=== PATIENT | female | born 1965 | race Caucasian/White ===

== ENCOUNTER 2017-10-05 10:44 | Inpatient (IN) | payer BC ==
[2017-10-05 11:43] VITALS: BMI 34.0
--- NOTE | 2017-10-05 13:18 | HP ---
COWS - Scale Resting Pulse: 1= AL 81-100 Sweatin=Flushed/Facial Moisture Restless Observation: 3= Extraneous Movement Pupil Size: 2= Moderately Dilated Bone or Joint Aches: 2= Severe Diffuse Aches Runny Nose/ Eye Tearin= Runny Nose/Eyes GI Upset > 30mins: 3= Vomiting/Diarrhea Tremor Observation: 2= Slight Tremor Visible Yawning Observation: 2= >3x During Session Anxiety or Irritability: 2=Irritable/Anxious Goose Flesh Skin: 0=Smooth Skin COWS Score: 21 Admission ROS S - HPI Chief Complaint: i need help to stop using heroin and marijuana Allergies/Adverse Reactions: Allergies Allergy/AdvReac Type Severity Reaction Status Date / Time No Known Allergies Allergy Verified 10/05/17 11:50 History of Present Illness: this 51 years old female with heroin and marijuana dependence,seeking detox, withdrawal symptom,last treatment 04/13/16 to 04/15/16 not completed asthma infected both axilla and right groin abscess on bactrim ds 1 tab bid [facility] anxiety,depression,insomnia longest period of sobriety 4 years Exam Limitations: No Limitations - Ebola screening Have you traveled outside of the country in the last 21 days: No Have you had contact with anyone from an Ebola affected area: No Have you been sick,other than usual withdrawal symptoms: No Do you have a fever: No - Review of Systems Constitutional: Chills, Loss of Appetite, Malaise, Night Sweats, Changes in sleep, Weakness EENT: reports: Tearing, Nose Congestion Respiratory: reports: No Symptoms reported Cardiac: reports: No Symptoms Reported GI: reports: Diarrhea, Nausea, Vomiting, Abdominal cramping : reports: No Symptoms Reported Musculoskeletal: reports: Back Pain, Joint Pain, Muscle Pain, Joint Stiffness Integumentary: reports: Dryness Neuro: reports: Headache, Tremors Endocrine: reports: No Symptoms Reported Hematology: reports: No Symptoms Reported Psychiatric: reports: No Sypmtoms Reported, Judgement Intact, Mood/Affect Appropiate, Orientated x3 (insomnia), Anxious, Depressed Patient History - Patient Medical History Hx Anemia: No Hx Asthma: Yes (on albuterol inhaler) Hx Chronic Obstructive Pulmonary Disease (COPD): No Hx Cancer: No Hx Cardiac Disorders: No Hx Congestive Heart Failure: No Hx Hypertension: No Hx Hypercholesterolemia: No Hx Pacemaker: No HX Cerebrovascular Accident: No Hx Seizures: No Hx Dementia: No Hx Diabetes: No Hx Gastrointestinal Disorders: No Hx Liver Disease: No Hx Genitourinary Disorders: No Hx Sexually Transmitted Disorders: No Hx Renal Disease (ESRD): No Hx Thyroid Disease: No Hx Human Immunodeficiency Virus (HIV): No (NEGATIVE HX last 07/29 ) Hx Hepatitis C: No Hx Depression: Yes Hx Suicide Attempt: Yes (walked infront of a car) Hx Bipolar Disorder: Yes Hx Schizophrenia: No Other Medical History: no suicidal,no homicidal - Patient Surgical History Past Surgical History: No Hx Neurologic Surgery: No Hx Cataract Extraction: No Hx Cardiac Surgery: No Hx Lung Surgery: No Hx Breast Surgery: No Hx Breast Biopsy: No Hx Abdominal Surgery: No Hx Appendectomy: No Hx Cholecystectomy: No Hx Genitourinary Surgery: No Hx Section: No Hx Orthopedic Surgery: No Hx Hysterectomy: No Anesthesia Reaction: No - PPD History Previous Implant?: Yes Documented Results: Positive w/o proof Implanted On Prior R Admission?: No Results: CXR TO BE DONE - Reproductive History Patient is a Female of Child Bearing Age (11 -55 yrs old): Yes Last Menstrual Period: 03/25/16 Patient : No - Smoking Cessation Smoking history: Current every day smoker Have you smoked in the past 12 months: Yes Aproximately how many cigarettes per day: 7 Hx Chewing Tobacco Use: No Initiated information on smoking cessation: Yes 'Breaking Loose' booklet given: 10/05/17 - Substance & Tx. History Hx Alcohol Use: No Hx Substance Use: Yes Substance Use Type: Heroin, Marijuana Hx Substance Use Treatment: Yes ([facility] 04/13/16 to 04/15/16 not completed) - Substances Abused Heroin Route: Inhalation Frequency: Daily Amount used: 6 bags Age of first use: 30 Date of Last Use: 10/05/17 Marijuana/Hashish Route: Smoking Frequency: Daily Amount used: $10 Age of first use: 17 Date of Last Use: 10/04/17 Family Disease History - Family Disease History Family Disease History: Other: Father (alcohol,), Mother (dsa,alcohol ) Admission Physical Exam BHS - Vital Signs Vital Signs: Vital Signs - 24 hr 10/05/17 11:37 Temperature 96.1 F L Pulse Rate 89 Respiratory 20 Rate Blood Pressure 133/93 - Physical General Appearance: Yes: Moderate Distress, Tremorous, Irritable, Sweating, Anxious HEENTM: Yes: Normal ENT Inspection, SILVERIO, Pharynx Normal Respiratory: Yes: Lungs Clear, Normal Breath Sounds, No Respiratory Distress Neck: Yes: Within Normal Limits, Supple, Trachea in good position Breast: Yes: Breast Exam Deferred Cardiology: Yes: Within Normal Limits, Regular Rhythm, S1, S2 Abdominal: Yes: Normal Bowel Sounds, Non Tender, Soft, Organomegaly Genitourinary: Yes: Within Normal Limits Back: Yes: Normal Inspection, Muscle Spasm Musculoskeletal: Yes: full range of Motion, Back pain, Muscle Pain Extremities: Yes: Within Normal Limits, Normal Range of Motion, Tremors Neurological: Yes: marketing intelligence manager II-XII NML intact, Alert, Motor Strength 5/5 Integumentary: Yes: Dry, Other (abscess both axilla and right groin) Lymphatic: Yes: Within Normal Limits - Diagnostic (1) Opioid dependence with withdrawal Current Visit: Yes Status: Acute (2) Cannabis dependence Current Visit: Yes Status: Acute (3) Asthma Current Visit: Yes Status: Acute (4) Nicotine dependence Current Visit: Yes Status: Acute (5) Abscess Current Visit: Yes Status: Acute (6) Bipolar disorder Current Visit: Yes Status: Suspected Qualifiers: Current episode severity: unspecified Comment: Self reports. Cleared for Admission [facility] - Detox or Rehab [facility] Level of Care: Medically Managed Detox Regimen/Protocol: Methadone [facility] Breath Alcohol Content Breath Alcohol Content: 0 Urine Pregancy Test - Result Urine Test Results: Negative- NO Line Present Urine Drug Screen - Results Drug Screen Negative: No Urine Drug Screen Results: THC-Marijuana, OPI-Opiates, MTD-Methadone
[2017-10-05] MEDS ORDERED: MAG HYDROX/AL HYDROX/SIMETH 30 ML UNIT-DOSE CUP PO PRN (13:33)
[2017-10-05] MEDS ORDERED: MENTHOL/PHENOL 1 EACH UD MM PRN (13:33)
[2017-10-05] MEDS ORDERED: LOPERAMIDE HCL 2 MG CAPSULE PO PRN (13:33)
[2017-10-05] MEDS ORDERED: P-EPHED 60MG/TRIPROLIDI 2.5MG TABLET PO PRN (13:33)
[2017-10-05] MEDS ORDERED: hydrOXYzine PAMOATE 50 MG CAPSULE (FP) PO PRN (13:33)
[2017-10-05] MEDS ORDERED: NICOTINE POLACRILEX 2 MG GUM BUC PRN (13:33)
[2017-10-05] MEDS ORDERED: MAGNESIUM CITRATE 300 ML BOTTLE PO PRN (13:33)
[2017-10-05] MEDS ORDERED: ACETAMINOPHEN 325 MG TABLET (FP) PO PRN (13:33)
[2017-10-05] MEDS ORDERED: MAGNESIUM HYDROX 2400MG/30ML ORAL SUSPENSION 30 ML CUP PO PRN (13:33)
[2017-10-05] MEDS ORDERED: guaiFENesin/D-METHORPHAN HB 10 ML UNIT-DOSE CUPS PO PRN (13:33)
[2017-10-05] MEDS ORDERED: IBUPROFEN 400 MG TABLET (FP) PO PRN (13:33)
[2017-10-05] MEDS ORDERED: ALBUTEROL SO4 18 GM HFA INHALER IH PRN (13:37)
[2017-10-05] MEDS ORDERED: METHADONE HCL 10 MG TABLET (FOR DETOX USE ONLY) PO ONE ×2 (14:40→23:00)
[2017-10-05] MEDS: diazePAM 5 MG TABLET PO PRN (15:26)
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
[2017-10-05 21:31] LABS: URINE APPEARANCE CLOUDY; URINE BILIRUBIN NEGATIVE (<2.0 mg/dL); URINE BLOOD NEGATIVE (NEGATIVE); URINE COLOR YELLOW; URINE GLUCOSE (UA) NEGATIVE (NEGATIVE); URINE KETONE NEGATIVE (NEGATIVE); URINE LEUK ESTERASE TRACE (NEGATIVE); URINE NITRITE NEGATIVE (NEGATIVE); URINE PROTEIN NEGATIVE (NEGATIVE)
[2017-10-05 21:47] LABS: CALCIUM OXALATE CRYSTALS RARE /hpf (NONE SEEN); EPI CELLS MODERATE /HPF (FEW); URINE MUCUS RARE
[2017-10-05] MEDS ORDERED: MELATONIN 5 MG TABLETS PO PRN (22:00)
[2017-10-05] MEDS: THIAMINE HCL 100 MG TABLET (FP) PO SCH (22:33)
[2017-10-06] MEDS ORDERED: SULFAMETHOXAZOLE/TRIMETHOPRIM 800MG/160MG D.S. TABLET PO SCH (10:00)
[2017-10-06] MEDS ORDERED: METHADONE HCL 10 MG TABLET (FOR DETOX USE ONLY) PO ONE (10:00)
[2017-10-06] MEDS: PRENATAL VITAMINS W/ FOLIC ACID TABLET (FP) PO SCH (10:22)
[2017-10-06] MEDS: diazePAM 5 MG TABLET PO PRN ×2 (10:23→22:27)
[2017-10-06 10:27] LABS: CHLORIDE 107 mmol/L (98-107); POTASSIUM 3.7 mmol/L (3.5-5.1); SODIUM 144 mmol/L (136-145)
[2017-10-06 10:28] LABS: HEMOGLOBIN 13.4 GM/dL (10.7-15.3); MCH 31.8 pg (25.7-33.7); MCHC 34.4 g/dl (32.0-36.0); MEAN CELL VOLUME 92.5 fl (80-96); MEAN PLT VOLUME 9.6 fl (7.5-11.1); PLATELET COUNT 159 K/MM3 (134-434); RBC 4.22 M/mm3 (3.60-5.2); RDW 14.1 % (11.6-15.6); WHITE BLOOD COUNT 7.3 K/mm3 (4.0-10.0)
[2017-10-06 10:34] LABS: ALBUMIN 3.6 g/dl (3.4-5.0); ALK PHOS 66 U/L (45-117); ANION GAP 6 (8-16); BILIRUBIN,TOTAL 0.3 mg/dL (0.2-1.0); BLOOD UREA NITROGEN 10 mg/dL (7-18); CALCIUM 8.4 mg/dL (8.5-10.1); CO2 31 mmol/L (21-32); CREATININE 0.8 mg/dL (0.55-1.02); GLUCOSE,RANDOM 109 mg/dL (74-106); SGOT/AST 12 U/L (15-37); SGPT/ALT 12 U/L (12-78); TOT PROT 6.8 g/dl (6.4-8.2)
[2017-10-06] MEDS: SULFAMETHOXAZOLE/TRIMETHOPRIM 800MG/160MG D.S. TABLET PO SCH ×2 (11:05→22:27)
[2017-10-06] MEDS ORDERED: ONDANSETRON *ODT* 4 MG TABLET SL PRN (11:33)
--- NOTE | 2017-10-06 11:37 | EKG ---
Test Reason : Blood Pressure : / mmHG Vent. Rate : 067 BPM Atrial Rate : 067 BPM P-R Int : 130 ms QRS Dur : 076 ms QT Int : 388 ms P-R-T Axes : 066 048 017 degrees QTc Int : 409 ms NORMAL SINUS RHYTHM LOW VOLTAGE QRS NONSPECIFIC T WAVE ABNORMALITY ABNORMAL ECG NO PREVIOUS ECGS AVAILABLE Confirmed by HARLAN MALIN, BENTLEY ([id number]) on 10/06/2017 11:37:10 AM Referred By: Confirmed By:BENTLEY CLAROS MD
--- NOTE | 2017-10-06 14:23 | PN ---
BHS COWS - Scale Resting Pulse: 0= NE 80 or Below Sweatin= Chills/Flushing Restless Observation: 3= Extraneous Movement Pupil Size: 1= Pupils >than Normal Bone or Joint Aches: 2= Severe Diffuse Aches Runny Nose/ Eye Tearin= Runny Nose/Eyes GI Upset > 30mins: 2= Nausea/Diarrhea Tremor Observation of Outstretched Hands: 2= Slight Tremor Visible Yawning Observation: 2= >3x During Session Anxiety or Irritability: 2=Irritable/Anxious Goose Flesh Skin: 0=Smooth Skin COWS Score: 17 S Progress Note (SOAP) Subjective: ALERT,IRRITABLE,ANXIOUS,INTERRUPTED SLEEP,TREMOR,PAIN IN THE BODY AND BACK Objective: 10/06/17 14:21 Vital Signs Temperature 97.9 F 10/06/17 10:00 Pulse Rate 70 10/06/17 10:00 Respiratory Rate 18 10/06/17 10:00 Blood Pressure 109/77 10/06/17 10:00 O2 Sat by Pulse Oximetry (%) EKG NSR,LOW VOLTAGE,PROLONG QT 404/423 NO CHEST PAIN,NO SOB,NO DIZZINESS Laboratory Last Values WBC 7.3 K/mm3 (4.0-10.0) 10/06/17 07:40 RBC 4.22 M/mm3 (3.60-5.2) 10/06/17 07:40 Hgb 13.4 GM/dL (10.7-15.3) 10/06/17 07:40 Hct 39.0 % (32.4-45.2) 10/06/17 07:40 MCV 92.5 fl (80-96) 10/06/17 07:40 MCH 31.8 pg (25.7-33.7) 10/06/17 07:40 MCHC 34.4 g/dl (32.0-36.0) 10/06/17 07:40 RDW 14.1 % (11.6-15.6) 10/06/17 07:40 Plt Count 159 K/MM3 (134-434) 10/06/17 07:40 MPV 9.6 fl (7.5-11.1) 10/06/17 07:40 Sodium 144 mmol/L (136-145) 10/06/17 07:40 Potassium 3.7 mmol/L (3.5-5.1) 10/06/17 07:40 Chloride 107 mmol/L (98-107) 10/06/17 07:40 Carbon Dioxide 31 mmol/L (21-32) 10/06/17 07:40 Anion Gap 6 (8-16) L 10/06/17 07:40 BUN 10 mg/dL (7-18) 10/06/17 07:40 Creatinine 0.8 mg/dL (0.55-1.02) 10/06/17 07:40 Creat Clearance w eGFR > 60 (>60) 10/06/17 07:40 Random Glucose 109 mg/dL (74-106) H 10/06/17 07:40 Calcium 8.4 mg/dL (8.5-10.1) L 10/06/17 07:40 Total Bilirubin 0.3 mg/dL (0.2-1.0) D 10/06/17 07:40 AST 12 U/L (15-37) L 10/06/17 07:40 ALT 12 U/L (12-78) 10/06/17 07:40 Alkaline Phosphatase 66 U/L (45-117) 10/06/17 07:40 Total Protein 6.8 g/dl (6.4-8.2) 10/06/17 07:40 Albumin 3.6 g/dl (3.4-5.0) 10/06/17 07:40 Urine Color Yellow 10/05/17 14:00 Urine Appearance Cloudy 10/05/17 14:00 Urine pH 6.0 (5.0-8.0) 10/05/17 14:00 Ur Specific [place] 1.019 (1.001-1.035) 10/05/17 14:00 Urine Protein Negative (NEGATIVE) 10/05/17 14:00 Urine Glucose (UA) Negative (NEGATIVE) 10/05/17 14:00 Urine Ketones Negative (NEGATIVE) 10/05/17 14:00 Urine Blood Negative (NEGATIVE) 10/05/17 14:00 Urine Nitrite Negative (NEGATIVE) 10/05/17 14:00 Urine Bilirubin Negative (<2.0 mg/dL) 10/05/17 14:00 Urine Urobilinogen 2.0 mg/dL (0.2-1.0) H 10/05/17 14:00 Ur Leukocyte Esterase Trace (NEGATIVE) 10/05/17 14:00 Urine WBC (Auto) 4 /hpf (3-5) 10/05/17 14:00 Urine RBC (Auto) 2 /hpf (0-3) 10/05/17 14:00 Ur Epithelial Cells Moderate /HPF (FEW) 10/05/17 14:00 Calcium Oxalate Crystal Rare /hpf (NONE SEEN) 10/05/17 14:00 Urine Mucus Rare 10/05/17 14:00 RPR Titer Nonreactive (NONREACTIVE) 10/06/17 07:40 Assessment: 10/06/17 14:23 WITHDRAWAL SYMPTOM Plan: CONTINUE DETOX
[2017-10-06] MEDS: THIAMINE HCL 100 MG TABLET (FP) PO SCH (22:26)
[2017-10-07] MEDS ORDERED: METHADONE HCL 5 MG TABLET (FOR DETOX USE ONLY) PO ONE (10:00)
[2017-10-07] MEDS: PRENATAL VITAMINS W/ FOLIC ACID TABLET (FP) PO SCH (10:16)
[2017-10-07] MEDS: SULFAMETHOXAZOLE/TRIMETHOPRIM 800MG/160MG D.S. TABLET PO SCH (10:16)
[2017-10-07] MEDS: diazePAM 5 MG TABLET PO PRN (10:17)
--- NOTE | 2017-10-07 10:47 | EKG ---
Test Reason : Blood Pressure : / mmHG Vent. Rate : 066 BPM Atrial Rate : 066 BPM P-R Int : 136 ms QRS Dur : 078 ms QT Int : 404 ms P-R-T Axes : 062 029 008 degrees QTc Int : 423 ms NORMAL SINUS RHYTHM POSSIBLE LEFT ATRIAL ENLARGEMENT LOW VOLTAGE QRS NONSPECIFIC T WAVE ABNORMALITY ABNORMAL ECG WHEN COMPARED WITH ECG OF 05-OCT-2017 16:07, NO SIGNIFICANT CHANGE WAS FOUND Confirmed by HARLAN MALIN, BENTLEY ([id number]) on 10/07/2017 10:47:49 AM Referred By: Confirmed By:BENTLEY CLAROS MD
--- NOTE | 2017-10-07 11:39 | PN ---
BHS COWS - Scale Resting Pulse: 0= SD 80 or Below Sweatin= Chills/Flushing Restless Observation: 1= Difficult to Sit Still Pupil Size: 0= Normal to Room Light Bone or Joint Aches: 2= Severe Diffuse Aches Runny Nose/ Eye Tearin= Nasal Congestion GI Upset > 30mins: 1= Stomach Cramp Tremor Observation of Outstretched Hands: 2= Slight Tremor Visible Yawning Observation: 1= 1-2x During Session Anxiety or Irritability: 2=Irritable/Anxious Goose Flesh Skin: 3=Piloerection COWS Score: 14 S Progress Note (SOAP) Subjective: sweats body aches i want gingerale for my upset stomach i want to see a resaw operator interrupted sleep Objective: 10/07/17 11:37 Vital Signs Temperature 97.5 F L 10/07/17 11:00 Pulse Rate 69 10/07/17 11:00 Respiratory Rate 20 10/07/17 11:00 Blood Pressure 140/80 10/07/17 11:00 O2 Sat by Pulse Oximetry (%) Laboratory Tests 10/05/17 10/06/17 10/06/17 14:00 07:40 07:40 WBC 7.3 RBC 4.22 Hgb 13.4 Hct 39.0 MCV 92.5 MCH 31.8 MCHC 34.4 RDW 14.1 Plt Count 159 MPV 9.6 Sodium 144 Potassium 3.7 Chloride 107 Carbon Dioxide 31 Anion Gap 6 L BUN 10 Creatinine 0.8 Creat Clearance w eGFR > 60 Random Glucose 109 H Calcium 8.4 L Total Bilirubin 0.3 D AST 12 L ALT 12 Alkaline Phosphatase 66 Total Protein 6.8 Albumin 3.6 Urine Color Yellow Urine Appearance Cloudy Urine pH 6.0 Ur Specific [place] 1.019 Urine Protein Negative Urine Glucose (UA) Negative Urine Ketones Negative Urine Blood Negative Urine Nitrite Negative Urine Bilirubin Negative Urine Urobilinogen 2.0 H Ur Leukocyte Esterase Trace Urine WBC (Auto) 4 Urine RBC (Auto) 2 Ur Epithelial Cells Moderate Calcium Oxalate Crystal Rare Urine Mucus Rare RPR Titer 10/06/17 07:40 WBC RBC Hgb Hct MCV MCH MCHC RDW Plt Count MPV Sodium Potassium Chloride Carbon Dioxide Anion Gap BUN Creatinine Creat Clearance w eGFR Random Glucose Calcium Total Bilirubin AST ALT Alkaline Phosphatase Total Protein Albumin Urine Color Urine Appearance Urine pH Ur Specific [place] Urine Protein Urine Glucose (UA) Urine Ketones Urine Blood Urine Nitrite Urine Bilirubin Urine Urobilinogen Ur Leukocyte Esterase Urine WBC (Auto) Urine RBC (Auto) Ur Epithelial Cells Calcium Oxalate Crystal Urine Mucus RPR Titer Nonreactive aaox3 ambulating no acute distress Assessment: 10/07/17 11:38 withdrawal sx Plan: continue detox increase fluids gingerale with meals resaw operator ordered
[2017-10-07 13:35] VITALS: BP 114/75; PULSE 61; TEMP 97.7
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
--- NOTE | 2017-10-07 16:02 | DS ---
[facility] Detox Discharge Summary Admission Date: 10/05/17 - History Present History: Alcohol Dependence, Cannabis Dependence - Physical Exam Results Vital Signs: Vital Signs Temperature 97.7 F 10/07/17 13:35 Pulse Rate 61 10/07/17 13:35 Respiratory Rate 18 10/07/17 13:35 Blood Pressure 114/75 10/07/17 13:35 O2 Sat by Pulse Oximetry (%) - Treatment Hospital Course: Discharged Condition Good - Medication Discharge Medications: Ambulatory Orders Albuterol Sulfate Inhaler - [Ventolin Hfa Inhaler -] 2 inh PO Q4H PRN 04/13/16 Aripiprazole [Abilify -] 5 mg PO DAILY 04/13/16 Sulfamethoxazole/Trimethoprim [Bactrim Ds -] 1 tab PO DAILY 10/05/17 - Diagnosis (1) Abscess Current Visit: Yes Status: Acute (2) Asthma Current Visit: Yes Status: Chronic Qualifiers: Asthma severity: mild Asthma complication type: uncomplicated (3) Cannabis dependence Current Visit: Yes Status: Chronic (4) Nicotine dependence Current Visit: Yes Status: Chronic Qualifiers: Nicotine product type: cigarettes Substance use status: uncomplicated Qualified Code(s): F17.210 - Nicotine dependence, cigarettes, uncomplicated (5) Opioid dependence with withdrawal Current Visit: Yes Status: Chronic (6) Substance induced mood disorder Current Visit: Yes Status: Acute (7) Bipolar disorder Current Visit: Yes Status: Suspected Qualifiers: Current episode severity: unspecified (8) Drug-induced mood disorder Current Visit: No Status: Acute (9) Alcohol dependence with uncomplicated withdrawal Current Visit: No Status: Chronic (10) Chronic constipation Current Visit: No Status: Chronic (11) History of asthma Current Visit: No Status: Chronic (12) Marijuana abuse Current Visit: No Status: Chronic - AMA Did Patient Leave Against Medical Advice: Yes (going home)
[2017-10-08] MEDS ORDERED: METHADONE HCL 5 MG TABLET (FOR DETOX USE ONLY) PO ONE (10:00)
[2017-10-09] MEDS ORDERED: METHADONE HCL 10 MG TABLET (FOR DETOX USE ONLY) PO ONE (10:00)
[2017-10-10] MEDS ORDERED: METHADONE HCL 5 MG TABLET (FOR DETOX USE ONLY) PO ONE (06:00)
== END 2017-10-07 15:44 | disposition left against medical advice (07) | DRG 894 ==
LOC: YASAS 10:44 → Y6N 14:13
PROVIDERS: ADMIT Internal Medicine; ATTEND Internal Medicine
PROC: HZ2ZZZZ Detoxification Services for Substance Abuse Treatment (ICD-10-PCS; principal; 2017-10-05)
DX: F11.23 Opioid dependence with withdrawal (principal); L02.412 Cutaneous abscess of left axilla; L02.411 Cutaneous abscess of right axilla; L02.214 Cutaneous abscess of groin; F10.230 Alcohol dependence with withdrawal, uncomplicated; F12.20 Cannabis dependence, uncomplicated; F17.210 Nicotine dependence, cigarettes, uncomplicated; F19.24 Other psychoactive substance dependence with psychoactive substance-induced mood disorder; F31.9 Bipolar disorder, unspecified; J45.909 Unspecified asthma, uncomplicated; K59.01 Slow transit constipation; Z91.5 Personal history of self-harm
CPT/HCPCS: 36415; 80053; 81003; 81015; 85027; 86593; 93005; 93010